=== PATIENT | female | born 1985 | race Caucasian/White ===

== ENCOUNTER 2016-07-31 01:28 | Emergency (ER) | payer MEDICAID ==
[2016-07-31 02:25] LABS: BASOPHIL % 1.7 % (0-2); CALCIUM 8.5 mg/dL (8.5-10.1); CARBON DIOXIDE 31.5 mmol/L (21-32); CHLORIDE SERUM 104 mmol/L (98-107); CREATININE SERUM 0.8 mg/dL (0.6-1.0); GFR1 > 60 mL/min; GLUCOSE SERUM 164 mg/dL (74-106); POTASSIUM SERUM 3.4 mmol/L (3.5-5.1); RED CELL DISTRIBUTION WIDTH 12.6 % (11.5-14.5); SODIUM SERUM 142 mmol/L (136-145)
[2016-07-31 02:26] LABS: PLATELET COUNT 412 x10^3mcL (130-400)
[2016-07-31 02:31] LABS: ALBUMIN 3.5 g/dL (3.4-5.0); ALKALINE PHOSPHATASE 90 U/L (46-116); ALT/SGPT 72 U/L (14-59); AST/SGOT 37 U/L (15-37); BILIRUBIN TOTAL 0.51 mg/dL (0.20-1.00); TOTAL PROTEIN, SERUM 7.3 g/dL (6.4-8.2)
[2016-07-31 03:49] VITALS: BP 110/82
== END 2016-07-31 03:49 | disposition home or self-care (01) ==
LOC: ED 01:28
PROVIDERS: Emergency Medicine
DX: R07.89 Other chest pain (principal); R05 Cough; M54.6 Pain in thoracic spine; Z88.0 Allergy status to penicillin
CPT/HCPCS: 85378; Q0092

== ENCOUNTER 2016-08-12 22:46 | Emergency (ER) | payer MEDICAID ==
[2016-08-13 01:35] LABS: CALCIUM 8.6 mg/dL (8.5-10.1); CARBON DIOXIDE 27.8 mmol/L (21-32); CHLORIDE SERUM 101 mmol/L (98-107); CREATININE SERUM 0.8 mg/dL (0.6-1.0); GFR1 > 60 mL/min; GLUCOSE SERUM 212 mg/dL (74-106); POTASSIUM SERUM 3.7 mmol/L (3.5-5.1); SODIUM SERUM 136 mmol/L (136-145)
[2016-08-13 01:36] LABS: ALBUMIN 3.5 g/dL (3.4-5.0); ALKALINE PHOSPHATASE 81 U/L (46-116); ALT/SGPT 88 U/L (14-59); AST/SGOT 48 U/L (15-37); BILIRUBIN TOTAL 1.25 mg/dL (0.20-1.00); LIPASE 103 IU/L (73-393); TOTAL PROTEIN, SERUM 7.8 g/dL (6.4-8.2)
[2016-08-13 04:06] VITALS: BP 127/77
== END 2016-08-13 04:06 | disposition home or self-care (01) ==
LOC: ED 22:46
PROVIDERS: Emergency Medicine
DX: R19.7 Diarrhea, unspecified (principal); R10.13 Epigastric pain; R11.2 Nausea with vomiting, unspecified
CPT/HCPCS: Q0162

== ENCOUNTER 2016-12-07 01:06 | Emergency (ER) | payer MEDICAID ==
[2016-12-07 01:14] VITALS: BP 146/108
== END 2016-12-07 02:02 | disposition home or self-care (01) ==
LOC: ED 01:06
DX: H60.92 Unspecified otitis externa, left ear (principal)

== ENCOUNTER 2016-12-09 00:25 | Emergency (ER) | payer MEDICAID ==
[2016-12-09 01:40] VITALS: BP 149/98
== END 2016-12-09 01:00 | disposition home or self-care (01) ==
LOC: ED 00:25
DX: H60.502 Unspecified acute noninfective otitis externa, left ear (principal); Z88.0 Allergy status to penicillin; Z91.013 Allergy to seafood

== ENCOUNTER 2017-03-10 19:59 | Emergency (ER) | payer MEDICAID ==
[~2017-03-10] VITALS: Ht 165.1 cm; Wt 131.5 kg
[2017-03-10 21:13] LABS: BASOPHIL % 0.2 % (0-2); PLATELET COUNT 327 x10^3mcL (130-400); RED CELL DISTRIBUTION WIDTH 13.3 % (11.5-14.5)
[2017-03-10 21:22] LABS: CALCIUM 8.7 mg/dL (8.5-10.1); CHLORIDE SERUM 101 mmol/L (98-107); CREATININE SERUM 0.7 mg/dL (0.6-1.0); GFR1 > 60 mL/min; GLUCOSE SERUM 219 mg/dL (74-106); POTASSIUM SERUM 3.7 mmol/L (3.5-5.1); SODIUM SERUM 138 mmol/L (136-145)
[2017-03-10 21:27] LABS: ALBUMIN 3.4 g/dL (3.4-5.0); ALKALINE PHOSPHATASE 104 U/L (46-116); ALT/SGPT 107 U/L (14-59); AMYLASE 52 U/L (25-115); AST/SGOT 49 U/L (15-37); LIPASE 134 IU/L (73-393); TOTAL PROTEIN, SERUM 8.2 g/dL (6.4-8.2)
[2017-03-10 23:04] VITALS: BP 152/75
== END 2017-03-10 23:04 | disposition home or self-care (01) ==
LOC: ED 19:59
PROVIDERS: Emergency Medicine
DX: K21.9 Gastro-esophageal reflux disease without esophagitis (principal); E66.01 Morbid (severe) obesity due to excess calories; Z88.0 Allergy status to penicillin; Z91.013 Allergy to seafood
CPT/HCPCS: 83880; C9113; J2405; J2765; J3490; J7030

== ENCOUNTER 2017-07-05 12:42 | Emergency (ER) | payer MEDICAID ==
[~2017-07-05] VITALS: Ht 165.1 cm; Wt 126.5 kg
[2017-07-05 12:47] VITALS: Ht 165.1 cm; Wt 126.5 kg
[2017-07-05 16:44] VITALS: BP 109/61
== END 2017-07-05 16:44 | disposition home or self-care (01) ==
LOC: ED 12:42
DX: L02.31 Cutaneous abscess of buttock (principal); Z88.0 Allergy status to penicillin
CPT/HCPCS: J2001; J3010; J3490

== ENCOUNTER 2017-09-27 00:32 | Emergency (ER) | payer MEDICAID ==
[~2017-09-27] VITALS: Ht 165.1 cm; Wt 124.7 kg
[2017-09-27 00:38] VITALS: Ht 165.1 cm; Wt 124.7 kg
[2017-09-27 01:45] VITALS: BP 144/91
== END 2017-09-27 01:35 | disposition home or self-care (01) ==
LOC: ED 00:32
DX: S83.91XA Sprain of unspecified site of right knee, initial encounter (principal); S00.81XA Abrasion of other part of head, initial encounter; Z88.0 Allergy status to penicillin; Z91.013 Allergy to seafood; W18.31XA Fall on same level due to stepping on an object, initial encounter; Y93.89 Activity, other specified; Y92.89 Other specified places as the place of occurrence of the external cause; Y99.8 Other external cause status
CPT/HCPCS: J1885

== ENCOUNTER 2019-01-21 00:48 | Inpatient (IN) | payer MEDICAID ==
[~2019-01-21] VITALS: Ht 162.6 cm; Wt 118.0 kg
[2019-01-21 00:53] VITALS: Ht 162.6 cm; Wt 118.0 kg
--- NOTE | 2019-01-21 01:24 | NUR ---
PT COMES TO ED WITH C/C RUQ ABD PAIN THAT RADIATES TO RIGHT FLANK. DENIES FEVER LIKE SYMTPOMS. REPORTS N/V X5 DAYS. PT IS AAOX4. RESP E/U. 01/26 PAIN TO RUQ. DENIES ANY PMH. CONNECTED TO MONITOR. AWAITING MSE.
--- NOTE | 2019-01-21 02:07 | NUR ---
LAB AT BEDSIDE.
[2019-01-21 02:28] LABS: PLATELET COUNT 323 x10^3mcL (130-400); RED CELL DISTRIBUTION WIDTH 12.5 % (11.5-14.5)
[2019-01-21 02:29] LABS: BASOPHIL % 0 % (0-2)
[2019-01-21 02:55] LABS: CALCIUM 8.9 mg/dL (8.5-10.1); CARBON DIOXIDE 24.3 mmol/L (21-32); CHLORIDE SERUM 95 mmol/L (98-107); CREATININE SERUM 0.9 mg/dL (0.6-1.0); GFR1 > 60 mL/min; GLUCOSE SERUM 343 mg/dL (74-106); POTASSIUM SERUM 3.7 mmol/L (3.5-5.1); SODIUM SERUM 131 mmol/L (136-145)
[2019-01-21 02:59] LABS: ALBUMIN 3.6 g/dL (3.4-5.0); ALKALINE PHOSPHATASE 112 U/L (46-116); ALT/SGPT 93 U/L (14-59); AST/SGOT 36 U/L (15-37); BILIRUBIN TOTAL 1.16 mg/dL (0.20-1.00); LIPASE 118 IU/L (73-393); TOTAL PROTEIN, SERUM 8.1 g/dL (6.4-8.2)
--- NOTE | 2019-01-21 03:41 | NUR ---
LAB AT BEDSIDE.
--- NOTE | 2019-01-21 04:08 | NUR ---
PT TAKEN TO CT AT THIS TIME.
--- NOTE | 2019-01-21 05:59 | NUR ---
REPORT CALLED AND GIVEN TO SHABNAM CASTELAN.
--- NOTE | 2019-01-21 06:28 | NUR ---
PT RECEIVED FROM ED VIA GURNEY ACCOMPANIED BY RN AND EMT. PT A/O X4, ABLE TO MAKE NEEDS KNOWN. TELE #27, SINUS TACH, PT DENIES ANY CP/PRESSURE. BREATHING IS EVEN AND UNLABORED ON RA, DENIES SOB, NO RESP DISTRESS NOTED. ABD SOFT AND ROUND, DENIES N/V. PT CAME IN FOR RUQ PAIN. PT NPO AT THIS TIME, PT VERBALIZES UNDERSTANDING, NPO SIGN POSTED. VOIDS FREELY, BRP. AMBULATORY WITH STEADY GAIT. SKIN IS WARM AND DRY, INTACT. PT DENIES ANY PAIN AT THIS TIME. IV TO RFA, PATENT AND INTACT. NO ACUTE DISTRESS NOTED. ORIENTED PT TO ROOM AND CALL LIGHT. BED IN LOWEST SETTING, SIDE RAILS UP X2, CALL LIGHT WITHIN REACH. WILL CONT TO MONITOR.
--- NOTE | 2019-01-21 07:15 | NUR ---
PT IN NO ACUTE DISTRESS. CONTINUITY OF CARE ENDORSED TO AM NURSE. ALL QUESTIONS AND CONCERNS ADDRESSED.
[2019-01-21 07:16] LABS: FREE T4 1.15 ng/dL (0.76-1.46); FREE THYROXINE INDEX 3.2 ug/dL (1.4-4.5); T4(THYROXINE) 10.2 ug/dL (4.7-13.3)
--- NOTE | 2019-01-21 07:44 | NUR ---
A+OX4, NO RESPRIATORY DISTRESS NOTED, DENIES PAIN AT THIS TIME, TELE 27, PULSES MODERATE AND EQUAL PERLA, NO EDEMA NOTED, LUNG SOUNDS CTA, TOLERATING RA, BOWEL SOUNDS ACTIVE, VOIDING FREELY, AMBULATORY, SKIN INTACT, IV IN RFA WITH NS @ 100 ML/HR, SITE WNL.
[2019-01-21 08:12] VITALS: BP 102/72
[2019-01-21 08:26] VITALS: BP 109/68
[2019-01-21 08:39] LABS: CHOLESTEROL/HDL RATIO 5.1; MAGNESIUM 1.2 mg/dL (1.8-2.4); PHOSPHOROUS 3.3 mg/dL (2.5-4.9)
[2019-01-21 08:49] LABS: T3 TOTAL 1.44 ng/mL
--- NOTE | 2019-01-21 09:27 | NUR ---
PT COMPLAINING OF 8/10 ABD PAIN, NORCO PO GIVEN, NO RESPIRATORY DISTRESS NOTED, CALL LIGHT WITHIN REACH.
[2019-01-21 09:43] LABS: microscopic required? NO
--- NOTE | 2019-01-21 10:07 | NUR ---
REPORT GIVEN TO NAM TRANSVERSE ABDOMINAL MUSCLE SURGEON. CHG WIPES DONE. PT INFORMED THAT SURGEON WILL EXPLAIN PROCEDURE IN OR. PT OFF UNIT VIA BED FOR SURGERY. TELE REMOVED AND PLACED AT BEDSIDE.
[2019-01-21 10:11] LABS: AMPHETAMINE QUAL UR NONE DETECTED (See below)
[2019-01-21 10:32] LABS: UA SPECIFIC GRAVITY >=1.030 (1.005-1.035); urine erythrocyte NEGATIVE (NEGATIVE)
--- NOTE | 2019-01-21 13:40 | NUR ---
PT BACK FROM [facility] WITH INCISIONS WITH SUTURES, ERZA, AND BAND AIDS, MAAME DRAIN, SCANT DRAINAGE. PT COMPLAINING OF 9/10 BAD PAIN AFTER AMBULATING TO BATHROOM AND BACK TO BED. NORCO PO GIVEN. VS STABLE. AT BEDSIDE, CALL LIGHT WITHIN REACH.
--- NOTE | 2019-01-21 16:15 | NUR ---
PT RESTING IN BED, NO RESPIRATORY DISTRESS NOTED, COMPLAINING OF 8/10 ABD PAIN, NORCO PO GIVEN, AT BEDSIDE, CALL LIGHT WITHIN REACH.
[2019-01-21 17:34] VITALS: BP 97/54
--- NOTE | 2019-01-21 18:43 | NUR ---
PT RESTING IN BED, NO RESPIRATORY DISTRESS NOTED, CALL LIGHT WITHIN REACH.
--- NOTE | 2019-01-21 19:20 | NUR ---
RECIEVED PT IN NO ACUTE DISTRESS. AOX4. TELE #27, ST. BREATHING E/U. I/S GIVEN, INSTRUCTED PT ON PURPOSE AND USE, PT ABLE TO RETURN DEMONSTRATION. BOWEL SOUNDS HYPOACTIVE. ABD SOFT/ROUND. ABD LAP SITES X 4 WITH SUTURES, EZRA, BANDAIDS, CDI. MAAME DRAIN PRESENT. S/P LAP HOLLIS 01/21. STATES PASSING GAS. NO POST OP BM YET. AMBULATES TO BATHROOM. C/O SURGICAL PAIN 11/26, WILL MEDICATE PER EMAR. IV TO RFA, PATENT. BED IN LOWEST POSITION, 2 SIDE RAILS UP, CALL LIGHT IN REACH. INSTRUCTED TO CALL FOR ASSISTANCE.
--- NOTE | 2019-01-21 19:37 | NUR ---
MAAME DRAIN EMPTIED: 10 ML BROWN DRAINAGE.
--- NOTE | 2019-01-21 19:37 | NUR ---
ENDORSED CARE TO FRANCK HAQUE.
[2019-01-21 20:51] VITALS: BP 104/70
--- NOTE | 2019-01-22 00:30 | NUR ---
RESTING WITH EYES CLOSED. BREATHING E/U. NO ACUTE DISTRESS NOTED. WILL CONTINUE TO MONITOR.
[2019-01-22 05:21] VITALS: BP 114/66
--- NOTE | 2019-01-22 05:56 | NUR ---
PT ABLE TO AMBULATE TO RESTROOM X 4 OVERNIGHT. CONTINUES TO PASS GAS, NO BM. C/O SURGICAL PAIN 11/26, MEDICATED WITH NORCO PO WITH GOOD EFFECT. INCISIONS REMAIN CDI. WILL ENDORSE TO ONCOMING RN.
[2019-01-22 06:24] LABS: BASOPHIL % 0.2 % (0-2); PLATELET COUNT 290 x10^3mcL (130-400); RED CELL DISTRIBUTION WIDTH 13.4 % (11.5-14.5)
[2019-01-22 06:54] LABS: CALCIUM 7.8 mg/dL (8.5-10.1); CARBON DIOXIDE 26.6 mmol/L (21-32); CHLORIDE SERUM 103 mmol/L (98-107); CREATININE SERUM 0.7 mg/dL (0.6-1.0); GFR1 > 60 mL/min; GLUCOSE SERUM 211 mg/dL (74-106); MAGNESIUM 1.6 mg/dL (1.8-2.4); PHOSPHOROUS 3.4 mg/dL (2.5-4.9); POTASSIUM SERUM 3.8 mmol/L (3.5-5.1); SODIUM SERUM 139 mmol/L (136-145)
--- NOTE | 2019-01-22 07:45 | NUR ---
A+OX4, NO RESPIRATORY DISTRESS NOTED, TELE 27, PULSES MODERATE AND EQUAL PERLA, NO EDEMA NOTED, LUNG SOUNDS CTA, TOLERATING RA, BOWEL SOUNDS ACTIVE, VOIDING FREELY, GENERALIZED WEAKNESS, AMBULATORY, X4 INCISIONS WITH SUTURES, EZRA, AND BAND AIDS WITH MAAME DRAIN CDI, IV IN RFA WITH NS @ 100 ML/HR, SITE WNL.
[2019-01-22 08:39] VITALS: BP 105/72
--- NOTE | 2019-01-22 09:37 | NUR ---
PT RESTING IN BED, COMPLAINING OF 10/10 ABD PAIN AT INCISION SITES, NORCO PO GIVEN. PT REQUESTING "STRONGER PAIN MEDS". PT ALSO COMPLAINING OF SORE THROAT. WILL NOTIFY RESIDENT DUSRING ROUNDS.
--- NOTE | 2019-01-22 10:40 | NUR ---
PT COMPLAINING OF SORE THROAT, CEPACOL GIVEN.
--- NOTE | 2019-01-22 12:01 | NUR ---
PT RESTING IN BED, NO RESPIRATORY DISTRESS NOTED, COMPLAINING OF 10/10 ABD PAIN, NORCO PO GIVEN, CALL LIGHT WITHIN REACH.
[2019-01-22 12:45] VITALS: BP 125/66
--- NOTE | 2019-01-22 13:09 | NUR ---
PT RESTING IN BED, NO RESPIRATORY DISTRESS NOTED, CALL LIGHT WITHIN REACH.
--- NOTE | 2019-01-22 13:52 | NUR ---
PT AMBULATING BACK AND FORTH IN ROOM INDEPENDENTLY, STATES ABD PAIN TOLERABLE AT THIS TIME, GAIT SLOW AND STEADY.
--- NOTE | 2019-01-22 16:12 | NUR ---
PT AMBULATEDTO BATHROOM AND BACK TO BED INDEPENDENTLY, NO RESPRIATORY DISTRESS NOTED, COMPLAINING OF 8/10 ABD PAIN, NORCO PO GIVEN, CALL LIGHT WITHIN REACH, AT BEDSIDE.
[2019-01-22 17:06] VITALS: BP 103/58
--- NOTE | 2019-01-22 20:00 | NUR ---
RECEIVED RPT FROM DAY SHIFT NURSE, CARLOS EDUARDO HAQUE. PT IS A/O X4. SPEECH IS CLEAR. IS AT BEDSIDE. ON TELE #27 READING NSR. VS ARE FOLLOWED: 115/76, HR 76, RR 18, SAO2 98%, TEMP 98.1. PULSES ARE PALPABLE IN ALL 4 EXTREMITIES. NO EDEMA NOTED. SWELLING ON RFA FROM IV. WILL D/C AND INSERT NEW ONE. BREATHING IS EVEN AND UNLABORED ON RA. LUNG SOUNDS CTA PERLA. DENIES SOB. ABD IS SOFT AND NONDISTENDED. BS ACTIVE IN ALL 4Q. BRP. AMBULATORY. STEADY GAIT. ABD HAS 4 SURGICAL INCISIONS WITH SUTURES, EZRA, AND BANDAIDS. MAAME DRAIN CDI. PT DOES C/O 10/26 PAIN. WILL MEDICATE PER JUN. BED IN LOWEST POSITION. CALL LIGHT WITHIN REACH. WILL CONTINUE TO MONITOR.
--- NOTE | 2019-01-22 20:25 | NUR ---
ROUTINE MEDS WERE GIVEN AND TOELRATED WELL. PT ALSO C/O OF NORRIS. WAS MEDICATED WITH PRN TYLENOL. WILL REASSESS EFFECTIVENESS.
[2019-01-22 20:35] VITALS: BP 115/76
--- NOTE | 2019-01-22 22:00 | NUR ---
NEW IV TO RH WAS INSERTED. DRY, INTACT, AND PATENT. APPLIED COFLEX TO SECURE PER PTS REQUEST. ENCOURAGED PT TO AMBULATE AND USE IS. CALL LIGHT WITHIN REACH. WILL CONTINUE TO MONITOR.
--- NOTE | 2019-01-23 01:36 | NUR ---
PT IS LYING IN BED WATCHING TV. C/O 10/26 AT SURGICAL SITE. MEDICATED PER JUN. REASSESSED EFFECTIVENESS AND PT SAID PAIN DECREASED TO 2/10. ENCOURAGED DEEP BREATHING. PROVIDED ICE PACKS. REPOSITIONED PATIENT. WILL CONTINUE TO MONITOR.
--- NOTE | 2019-01-23 03:22 | NUR ---
ASSISTED PT TO RESTROOM. C/O OF PAIN 06/26, BUT STATES ITS BAREABLE. BREATHING IS EVEN AND UNLABORED. NO SIGNS OF RESP DISTRESS. ENCOURAGED PT TO WALK OR USE IS. BED IN LOWEST POSITION. CALL LIGHT WITHIN REACH. WILL CONTINUE TO MONITOR.
--- NOTE | 2019-01-23 05:26 | NUR ---
PT SLEPT IN INTERVALS THROUGHOUT THE NIGHT. COMPLIED WITH NURSING CARE THROUGHOUT SHIFT WITH NO ACUTE EVENTS OVERNIGHT. COMFORT AND SAFETY MEASURES MAINTAINED. ALL NEEDS ASSESSED AND ATTENDED TO. WILL CONTINUE TO MONITOR AND ENDORSE CARE TO DAY SHIFT NURSE.
[2019-01-23 05:48] VITALS: BP 123/78
--- NOTE | 2019-01-23 07:49 | NUR ---
ENDORSED CARE TO DAY SHIFT NURSE, NAVI HAQUE.
--- NOTE | 2019-01-23 08:00 | NUR ---
RECEIVED PT IN BED. ASSESSED AND DOCUMENTED. PT SAID ABDOMINAL INCISIONS HAS MILD SORENESS BUT SHE CAN TOLERATE. ON AND OFF NAUSEA. SHE SAID SHE WILL IF SHE HAS NAUSEA. SAFTEY PRECAUTIONS ARE IN PLACE. WILL MONITOR.
--- NOTE | 2019-01-23 08:20 | NUR ---
PT IS FEELING NAUSEA AND VOMITED X1. ZOFRAN IV GIVEN ORDERED. WILL MONITOR.
--- NOTE | 2019-01-23 09:00 | NUR ---
PT SAID SHE DOESNOT HAVE NAUSEA ANYMORE. PT AMBULATED WELL IN THE HALLWAY WITH ASSIST OF STUDENT NURSE.
[2019-01-23 09:09] VITALS: BP 145/94
[2019-01-23 10:04] LABS: BILIRUBIN DIRECT 0.86 mg/dL (0.0-0.2); BILIRUBIN TOTAL 1.43 mg/dL (0.20-1.00); TOTAL PROTEIN, SERUM 7.6 g/dL (6.4-8.2)
[2019-01-23 13:11] VITALS: BP 145/92
--- NOTE | 2019-01-23 13:30 | NUR ---
PT C/O ABD INCISIONAL PAIN,07/27. ADMINISTERED NORCO PO ORDERED [id number] AND REASSESSED AT 1330 PT SAID SHE DOESNOT HAVE ANY PAIN ANYMORE. NO NAUSEA THIS TIME.
[2019-01-23 17:59] VITALS: BP 116/68
[2019-01-23 18:00] VITALS: BP 171/70
--- NOTE | 2019-01-23 18:41 | NUR ---
PT C/O ABD INCISIONAL PAIN,07/27. ADMINISTERED NORCO PO ORDERED AT 174 AND REASSESSED AT 184 PT SAID SHE DOESNOT HAVE ANY PAIN ANYMORE. NO NAUSEA THIS TIME.
--- NOTE | 2019-01-23 19:00 | NUR ---
RECEIVED PT IN BED RESTING WITH FAMILY AT BEDSIDE. AAOX4. LUNG SOUND CTA. BREATHING EVEN AND UNLABORED. 4 INCISIONS WITH SUTURES,STAPLE AND BANDAID TO ABDOMEN,CDI. MAAME DRAIN TO RLQ. IV SITE PATENT AND INTACT. BED IN LOWEST POSITION,CALL LIGHT WITHIN REACH. WILL CONTINUE TO MONITOR.
--- NOTE | 2019-01-23 19:06 | NUR ---
PT RESTING IN BED COMFORTABLY, NO NAUSEA THIS TIME. DENIES ANY PAIN. STABLE. FAMILY AT BEDSIDE, GAVE REPORT TO REMELT WORKER NURSE.
[2019-01-23 21:16] VITALS: BP 106/76
--- NOTE | 2019-01-24 02:20 | NUR ---
PT C/O ABDOMINAL PAIN 10/26. MEDICATED NORCO 7.5/325MG PO ORDERED. WILL CONTINUE TO MONITOR.
--- NOTE | 2019-01-24 05:02 | NUR ---
PT AWAKE. DENIES ANY PAIN AT THIS TIME.IVF INFUSING WELL. NO DISTRESS NOTED. MAAME DRAIN 20CC. PT AMBULATED TO THE BATHROOM.NO BM AT THIS TIME ONLY GAS. BED IN LOWEST POSITION,CALL LIGHT WITHIN REACH. WILL CONTINUE TO MONITOR.
[2019-01-24 06:02] VITALS: BP 111/74
[2019-01-24 06:43] LABS: BASOPHIL % 0.5 % (0-2); PLATELET COUNT 313 x10^3mcL (130-400); RED CELL DISTRIBUTION WIDTH 13.3 % (11.5-14.5)
[2019-01-24 06:48] LABS: CALCIUM 8.2 mg/dL (8.5-10.1); CARBON DIOXIDE 28.3 mmol/L (21-32); CHLORIDE SERUM 102 mmol/L (98-107); CREATININE SERUM 0.7 mg/dL (0.6-1.0); GFR1 > 60 mL/min; GLUCOSE SERUM 226 mg/dL (74-106); POTASSIUM SERUM 3.6 mmol/L (3.5-5.1); SODIUM SERUM 138 mmol/L (136-145)
--- NOTE | 2019-01-24 07:30 | NUR ---
CARE ENDORSED TO DAY NURSE NAVI.
--- NOTE | 2019-01-24 07:40 | NUR ---
RECEIVED PT IN BED. ASSESSED AND DOCUMENTED. DENIES PAIN THIS TIME. NO NAUSEA THIS TIME. STABLE. SAFTEY PRECAUTIONS ARE IN PLACE. WILL MONITOR.
--- NOTE | 2019-01-24 07:47 | NUR ---
PT C/O NAUSEA AND VOMITED 100ML GREENISH YELLOW DRAINAGE. ZOFRAN IV GIVEN ORDERED AND WILL REASSESS. STABLE.
--- NOTE | 2019-01-24 08:20 | NUR ---
PT RESTING IN BED COMFORTABLY. SHE SAID SHE DOESNOT FEEL NAUSEA THIS TIME. STABLE. DENIES ANY PAIN.
[2019-01-24 08:54] VITALS: BP 118/78
--- NOTE | 2019-01-24 10:56 | NUR ---
PT GOT UP TO GO TO THE BATHROOM, HR 130 FOR FEW SEC AND BACK TO NSR WITH HR 77. STATED MILD PAIN IN THE ABDOMINAL INCISION,/ BUT SHE SAID SHE CAN TOLERATE, NO NEED OF PAIN MED. PT IS GOING FOR ERCP PROCEDURE SOON.
--- NOTE | 2019-01-24 11:10 | NUR ---
OR STAFF CAME AND TOOK PT TO OR FOR ERCP VIA [facility]. CONSENT WAS SIGNED BY PT YESTERDAY AND CHECK LIST DONE. V/S STABLE. REPORT WAS GIVEN TO OR NURSE IN AM. JUNIOR WIPE WAS DONE.
--- NOTE | 2019-01-24 12:00 | NUR ---
1. Recommend progressing to (CCHO) clear/ full liquid diet once medically appropriate tolerated.
--- NOTE | 2019-01-24 12:00 | NUR ---
Initial Nutrition Assessment: 206T/A PARAG RIOS IA HR Dx: Tachycardia, new onset DM, cholecystitis PMHx: none PSHx: Labs: BG 226H, BUN 5.0L, ALB 3.0L, AST 223H, ALT 191H, TG 152H, MG 1.6L Meds: Colace, D50%, flagyl, Humulin, Levaquin, norco, zofran Diet: NPO for ERCP PO intake since admission: (01/23) full liquid lunch 20%, breakfast 0% Ht: 162.56 cm (64") Wt: 117.9 kg (259#) BMI: 44.6 kg/m2 Bed scale: 118# IBW: 120# (55 kg) %IBW: 215 UBW: 118-119# Age: 33/F Food Allergies: Seafood Skin: MAAME drain to RLQ, 4 incisions with sutures, regan Braulio: 21 Edema: none GI: s/p lap marita Last BM: 01/20 Pt is a 33-year-old female with no PMH presents to the emergency room complaining of abdominal pain. RD Note (01/24): Patient was alert and oriented and said that she has poor appetite and feels nauseous. Patient is scheduled for ERCP today. Patient is a new onset DM. DM diet education was provided to the patient. Problem with: N/V/D/C: nausea Problems with: Chewing: Swallowing: none Current appetite: poor Recent wt change: none %wt change: n/a Vitamin/Supplement use: none Special diet at home: Regular Physical activity: none Nutrition education given: DM diet education was provided using [facility] handout on 'Type 2 Diabetes Nutrition Therapy'. Concepts like high fiber foods and portion control were discussed. Patient verbalized understanding and did not have any questions at this time. Food-drug interactions: Colace: high fiber w/ 5660-0340 ml fluid/day Education given: n/a Estimated Nutritional Needs Based on adjusted body weight (71 kg) Energy: 8957-1422 kcal/day (25-30 kcal/kg for) Protein: 71-85 g/day (1.0-1.2 g/kg for) Fluid: 9740-6144 mL/day (1 mL/kcal) Nutrition Diagnosis: 1. Inadequate oral intake related to nausea, vomiting as evidenced by documented PO <75% Intervention 1. Recommend progressing to (CCHO) clear/ full liquid diet once medically appropriate tolerated. Monitor/Evaluate Goal: PO intake at least 75% of estimated needs Monitor: PO intake, Labs, GI function F/U in 3-5 days as moderate risk 01/27-
--- NOTE | 2019-01-24 14:45 | NUR ---
RECEIVED PT FROM RECOVERY ROOM AFTER ERCP. PT IS SLEEPY AND SLIGHTLY DROWSY. AROUSABLE AND VERBALLY RESPONDING. ORIENTED X4. DENIES ANY PAIN. NO NAUSEA THIS TIME. V/S CHECKED, STABLE AND WILL RECORDED. IVF NS RESTARTED 100ML/HR. STABLE. SCD'S TO BLE. ATTACHED TO TELE #27 READING SR WITH HR 72. WILL CONTINUE MONITOR.
[2019-01-24 14:49] VITALS: BP 125/90
[2019-01-24 16:38] VITALS: BP 112/76
--- NOTE | 2019-01-24 18:57 | NUR ---
PT C/O ABD INCISION PAIN,08/26. NORCO PO GIVEN ORDERED NOW. STABLE. NO NAUSEA THIS TIME. PT HAD CL DIET FOR DINNER. GAVE REPORT TO GLASS PULVERIZER EQUIPMENT OPERATOR NURSE.
--- NOTE | 2019-01-24 19:00 | NUR ---
RECEIVED PT IN BED RESTING WITH FAMILY BEDSIDE. NO DISTRESS NOTED. C/O SURGICAL PAIN 11/26.NURSE NAVI JUST MEDICATED NORCO 7.5/325. WILL REASSESS AGAIN. 4 INCISIONS TO ABDOMEN WITH SUTURES,EZRA AND BANDAID. MAAME DRAIN TO RLQ. IV SITE PATENT AND INTACT. BED IN LOWEST POSITION,CALL LIGHT WITHIN REACH. WILL CONTINUE TO MONITOR.
[2019-01-24 20:00] VITALS: BP 121/83
[2019-01-24 22:00] VITALS: BP 121/83
--- NOTE | 2019-01-25 | NUR ---
PT OOB TO BATHROOM. NO SOB NOTED. NO INCIDENT HAPPENED. WILL CONTINUE TO MONITOR.
--- NOTE | 2019-01-25 05:09 | NUR ---
PT REMAINED ASLEEP. NO DISTRESS NOTED. DENIES PAIN AT THIS TIME.BED IN LOWEST POSITION,CALL LIGHT WITHIN REACH. WILL CONTINUE TO MONITOR.
[2019-01-25 05:46] VITALS: BP 131/74
[2019-01-25 06:30] LABS: CALCIUM 8.2 mg/dL (8.5-10.1); CHLORIDE SERUM 100 mmol/L (98-107); CREATININE SERUM 0.6 mg/dL (0.6-1.0); GFR1 > 60 mL/min; GLUCOSE SERUM 208 mg/dL (74-106); MAGNESIUM 1.7 mg/dL (1.8-2.4); POTASSIUM SERUM 3.4 mmol/L (3.5-5.1); SODIUM SERUM 137 mmol/L (136-145)
--- NOTE | 2019-01-25 06:50 | NUR ---
MAAME DRAIN 10CC WITH LIGHT BROWN FLUID.
--- NOTE | 2019-01-25 07:27 | NUR ---
CARE ENDORSED TO DAY NURSE FLOR.
[2019-01-25 07:59] LABS: BASOPHIL % 0.3 % (0-2); PLATELET COUNT 312 x10^3mcL (130-400); RED CELL DISTRIBUTION WIDTH 13.6 % (11.5-14.5)
--- NOTE | 2019-01-25 08:06 | NUR ---
RECEIVED HAND OFF REPORT FROM NIGHT NURSE. PATIENT RESTING IN BED, EYES OPEN TO SOUND, A/OX4 SPEECH CLEAR, NO COMPLAINTS OF NAUSEA OR PAIN. X4 BANDAIDS TO ABD INCISIONS AND MAAME DRAIN PRESENT ON ABD. ENCOURAGED PATIENTT O EAT SLOWLY WITH BREAKFAST, CLEAR LIQUIDS. AND TO AMBULATE TODAY. CALL LIGHT WITHIN REACH. RAMO TORO ROUNDED ON PATIETN AND NEW ORDERS ENTERED FOR POTASSIUM 3.4 AND MAGNESIUM 1.7, WILL FOLLOW THROUGH WITH ORDERS
[2019-01-25 08:15] VITALS: BP 125/83
--- NOTE | 2019-01-25 08:30 | NUR ---
PATIENT COMPLAINING OF PAIN, ADMINISTERED NORCO PO. WHILE TAKING OTHER PO MEDICATION PATIENT FELT IF SHE WAS GOING TO VOMIT. SAT PATIENT UP AND ADMINISTERED ZOFRAN,. STARTED 2L O2 VIA NC FOR COMFORT. COAHCED DEEP, EVEN BREATHING. NO EPISODES OF VOMITING
[2019-01-25 12:05] VITALS: BP 121/82
[2019-01-25 12:06] VITALS: BP 107/57
--- NOTE | 2019-01-25 13:14 | NUR ---
BLOOD GLUCOSE RESULT WAS 191, ADMINSITERED 3UNITS REGULAR INSULIN PER SLIDING SCALE, RAMO TORO ADVANCED PATIENT DIET TO FULL LIQUIDS, AND IF TOLERATING WILL ADVANCE TO REGULAR DIET ([facility] FOR DINNER. ENCOURAGED PATIENT TO AMBULATE IN HIGH AFTER EATING, WILL PREMEDICATE. PATIENT NOW M/S PATIENT. TELE BOX 27 REMOVED FROM PATIENT AND TAKEN BACK TO JANICE SORIA
--- NOTE | 2019-01-25 15:05 | NUR ---
VISUALIZED PATIENT WALKING IN HALLWAY. GAIT STEAY BUT SLOW. NO PAIN REPORTED. ENCOURAGED PATIENT TO CONTINUE TO WALK TO PREPARE FOR DISCHARGE.
--- NOTE | 2019-01-25 16:10 | NUR ---
PATIENT NOW IN BE BED DUE TO A BED MALFUNCTIONING. RESTING IN BED, NO COMPLAINTS AT THIS TIME.
[2019-01-25 16:20] VITALS: BP 122/81
--- NOTE | 2019-01-25 16:56 | NUR ---
PATIENT BLOOD SUGAR RESULT WAS 186, ADMINISTERED 3 UNITS REGULAR INSULIN PER SLIDING SCALE, PATIENT STATES SHE THINKS SHE TOLLERATED FULL LIQUIDS WELL AND WOULD LIKE TO ADVANCE TO REGULAR DIET. WILL INFORM RAMO FOR ORDER
[2019-01-25 19:15] VITALS: BP 125/71
--- NOTE | 2019-01-25 19:21 | NUR ---
GAVE REPORT TO SAKINA HAQUE. MAAME DRAIN WAS EMPTIED 20ML OUT
--- NOTE | 2019-01-25 19:25 | NUR ---
RECEIVED PT AWAKE ALERT AND VERBALLY RESPONSIVE.S/P ERCP 01/24 AND S/P LAP HOLLIS 01/21/19.ABDOMINAL INCISION WITH EZRA X3 AND MAAME DRAIN SITE DRAINIGN TO YELLOW COLORED OUTPUT.ABDOMEN SOFT AND ROUND.ACTIVE BOWELSOUNDS.TOLERATED DIET WELL TODAY.DENIES ANY PAIN.JUST MEDICATED WITH NORCO BY AM NURSE WITH GOOD RELIEF.BP 125/71 MMHG,HR 85.ENCOURAGED AMBULATION AND USE OF INCENTIVE SPIROMETER.WILL CONTINUE TO MONITOR.
--- NOTE | 2019-01-26 04:35 | NUR ---
PT SLEPT WELL ALL NIGHT.MEDICATED WITH NORCO 7.5 MG PO X1 FOR INCISION PAIN WITH GOOD RELIEF.NO ASE NOTED FLAGYL IV ATB.AMBULATED IN THE HALLWAY LAST NIGHT WITH AND ENCOURED.ALSO ENCOUREGED USE OF I.S.WILL CONTINUE TO MONITOR.
--- NOTE | 2019-01-26 05:11 | NUR ---
EMPTIED 20 ML YELLOWISH COLORED OUTPUT FROM MAAME DRAIN.WILL CONTINUE TO MONITOR.
[2019-01-26 06:03] VITALS: BP 123/73
[2019-01-26 06:35] LABS: CALCIUM 7.7 mg/dL (8.5-10.1); CARBON DIOXIDE 28.8 mmol/L (21-32); CHLORIDE SERUM 102 mmol/L (98-107); CREATININE SERUM 0.6 mg/dL (0.6-1.0); GFR1 > 60 mL/min; GLUCOSE SERUM 182 mg/dL (74-106); POTASSIUM SERUM 3.5 mmol/L (3.5-5.1); SODIUM SERUM 137 mmol/L (136-145)
[2019-01-26 06:57] LABS: BASOPHIL % 0.2 % (0-2); PLATELET COUNT 309 x10^3mcL (130-400); RED CELL DISTRIBUTION WIDTH 13.5 % (11.5-14.5)
--- NOTE | 2019-01-26 07:32 | NUR ---
RECEIVED HAND OFF REPORT FROM NIGHT NURSE, SAKINA HAQUE. PATIENT SITTING UP IN BED, NO ACUTE DISTRESS. A/O X4 ON ROOM AIR. PATIENT HAD NOT ACUTE CHANGES DURING THE NIGHT, WAS ABLE TO SLEEP WELL, AMBULATED. X2 BOWEL MOVEMENTS YESTERDAY, 1 DIARRHEA AND 1 FORMED. DENIES CONSTIPATION. BOWEL SOUNDS ACTIVE, X3 BANDAIDS TO ABD OVER SURGICAL INSICIONS. MAAME DRAIN WITH 20ML OUTPUT LAST NIGHT. NOT COMPLAINING OF PAIN, CALL LIGHT WITHIN REACH, ENCOURAGED AMBULATION AND ORAL INTAKE. WILL CONTINUE TO MONITOR
[2019-01-26 08:13] VITALS: BP 130/80
--- NOTE | 2019-01-26 09:16 | NUR ---
RAMO SORENSEN ROUNDED ON PATIENT. AFTER TOLELRATING DIET LAST NIGHT AND MANAGEABLE PAIN PLAN IS D/C TODAY. PATIENT WILL BE D/C WITH MAAME DRAIN PER DR LOVING. PATIENT AWARE.
[2019-01-26 10:23] VITALS: BP 130/80
--- NOTE | 2019-01-26 10:39 | NUR ---
PATIENT COMPLAINING OF PAIN TO RUQ ABD 6/10, REQUESTING PAIN MEDICATION. ADMINISTERED NORCO PRN FOR PAIN. REFUSED COLACE DUE TO HAVING BOWEL MOVEMENTS AND NOT NEEDING. UPDATED PATIENT ON DISCHARGE PLAN, AWAITING ORDERS IN CHART. CALL LIGHT WITHIN REACH
[2019-01-26] MEDS ORDERED: LEVAQUIN500 M1 PO (11:37)
[2019-01-26] MEDS ORDERED: METFORMIN500 M1 PO (11:38)
--- NOTE | 2019-01-26 12:12 | NUR ---
PATIENT BLOOD SUGAR RESULT IS 208, EDUCATED PATIENT ON HOW TO CHECK HER OWN SUGAR. PROVIDED EDUCATION THAT SHE WILL NOT NEED TO ADMINISTER INSULIN TO HERSELF AT THIS TIME. EMPTIED MAAME DRAIN AND EDUCATED PATIENT ON HOW TO CHECK DRAINAGE AND MANAGE DRAIN PRESSURE. INSTRUCTED PATIENT TO RECORD DAILY DRAINAGE TO REPORT TO DR LOVING. LUNCH TRAY AT BEDSIDE. ENCOURAGE PATIENT TO EAT AND THEN WILL BE DISCHARGED AFTER WHEN HER RIDE ARRIVES
--- NOTE | 2019-01-26 13:41 | NUR ---
PATIENT STATED THAT HER IS ON HIS WAY TO PICK THE PATIENT UP. PATIENT REPORTS THAT SHE IS FEELING PAIN TO ABD. 6/10 ADMINSTERED NORCO PO AND WILL REASSESS BEFORE DISCHARGE.
[2019-01-26] MEDS ORDERED: TOR10 PO (14:32)
--- NOTE | 2019-01-26 14:51 | NUR ---
PATIENT READY FOR DISCHARGE. REVIEWED HOSPITAL STAY WITH PATIENT AND PROVIDED AFER VISIT SUMMARY. YESICA TEACHING ABOUT DIABETIC MANAGEMENT AND MANAGING THE MAAME DRAIN. POVIDED GAUZE AND TAPE TO PATIENT WELL COLLECTION CONTAINER FOR MAAME DRAIN DRAINAGE. PROVIDED PATIENT WITH COPIES OF PRESCRIPTIONS AND INFORMED HER OF ELECTRONIC TRANSFER TO [facility] [address]. IV REMOVED FROM RIGHT HAND, CATH INTACT. PATIENT ASSISTED OFF FLOOR WITH ALL BELONGINGS ON HER PERSON.
== END 2019-01-26 14:50 | disposition home or self-care (01) | DRG 710 ==
LOC: ED 00:48 → DU 04:57 → MU 01-25 17:07
PROVIDERS: Emergency Medicine; Family Medicine; Internal Medicine; ADMIT Internal Medicine
PROC: 0FT44ZZ Resection of Gallbladder, Percutaneous Endoscopic Approach (ICD-10-PCS; principal; 2019-01-24 11:30)
DX: A41.9 Sepsis, unspecified organism (principal); E87.0 Hyperosmolality and hypernatremia; M62.82 Rhabdomyolysis; K81.0 Acute cholecystitis; E66.01 Morbid (severe) obesity due to excess calories; Z68.41 Body mass index [BMI] 40.0-44.9, adult; E11.9 Type 2 diabetes mellitus without complications; E78.5 Hyperlipidemia, unspecified
CPT/HCPCS: 43262; 82962; 84439; C1769; C1887; C2625; G0378; J0330; J0694; J1170; J1610; J1815; J1956; J2250; J2270; J2405; J2704; J2710; J3010; J3475; J3490; J7030; J7120; Q0092; Q9967

== ENCOUNTER 2019-02-23 19:29 | Inpatient (IN) | payer MEDICAID ==
[~2019-02-23] VITALS: Ht 165.1 cm; Wt 120.5 kg
[~2019-02-23 19:29] MED LIST: LEVAQUIN500 M1 PO; METFORMIN500 M1 PO; TOR10 PO
[2019-02-23 21:02] LABS: BASOPHIL % 0.2 % (0-2); PLATELET COUNT 309 x10^3mcL (130-400); RED CELL DISTRIBUTION WIDTH 12.7 % (11.5-14.5)
[2019-02-23 21:10] LABS: CALCIUM 8.4 mg/dL (8.5-10.1); CARBON DIOXIDE 21.1 mmol/L (21-32); CHLORIDE SERUM 98 mmol/L (98-107); CREATININE SERUM 0.9 mg/dL (0.6-1.0); GFR1 > 60 mL/min; GLUCOSE SERUM 221 mg/dL (74-106); POTASSIUM SERUM 3.3 mmol/L (3.5-5.1); SODIUM SERUM 132 mmol/L (136-145)
[2019-02-23 21:14] LABS: ALBUMIN 3.4 g/dL (3.4-5.0); ALKALINE PHOSPHATASE 82 U/L (46-116); ALT/SGPT 51 U/L (14-59); AST/SGOT 22 U/L (15-37); BILIRUBIN TOTAL 1.5 mg/dL (0.20-1.00); LIPASE 96 IU/L (73-393); TOTAL PROTEIN, SERUM 7.6 g/dL (6.4-8.2)
--- NOTE | 2019-02-23 21:23 | NUR ---
PATIENT SEEN WITH COMPLAINT OF UPPER ABDOMINAL PAIN. SEEN BY MD. SALINE LOCK INSERTED. PATIENT MEDICATED WITH ZOFRAN AND MORPHINE. SALINE BOLUS IS INFUSING.
--- NOTE | 2019-02-23 21:59 | NUR ---
PATIENT REFUSE CATH, WENT TO THE BATHROOM, SMALL AMOUNT OF URINE COLLECTED UCG IS NEGATIVE.
--- NOTE | 2019-02-23 22:46 | NUR ---
PATIENT HAD ABDOMINAL SCAN DONE.
[2019-02-23 23:08] LABS: UA SPECIFIC GRAVITY 1.015 (1.005-1.035); microscopic required? YES; urine erythrocyte NEGATIVE (NEGATIVE)
--- NOTE | 2019-02-24 00:52 | NUR ---
REPORT WAS GIVEN TO FLIP. PATIENT TRANSPORTED TO ROOM 219.
--- NOTE | 2019-02-24 01:00 | NUR ---
RECEIVED PT BY MYRA FROM ED. PT ARRIVED WITH NURSE AND FAMILY MEMBER. PT AAOX4 AND ABLE TO FOLLOW COMMANDS. PT DENIES HEADACHE AND DIZZINESS AT THIS TIME. PT IS ON TELE #35, SR/ST AT THIS TIME. PT DENIES CHEST PAIN OR PRESSURE AT THIS TIME. PT PULSES ARE PALPABLE AND CAP REFILL <3 SEC. PT LUNG SOUNDS ARE CTA ON RA. PT BREATHING IS EVEN AND UNLABORED. PT HAS ACTIVE BOWEL SOUNDS X4. PT C/O ABD PAIN 5/10, NAUSEA, AND VOMITING. ADMINISTERED NORCO AND ZOFRAN PER JUN. PT HAD EMESIS EPISODE X1 AFTER ADMINISTRATION OF MEDS. PT VOIDS FREELY. PT IS AMBULATORY. PT SKIN WARM, DRY, AND INTACT. PT HAS 3 ABD INCISIONS THAT ARE HEALED FROM PAST CHOLECYSTECTOMY, AV SPECIALIST AND NO DRAINAGE NOTED. PT LH IV 22G D/C, CATH INTACT DUE TO PAIN UPON FLUSHING. NEW IV INSERTED IN RH 22G. NEW IV HAD BLOOD RETURN AND FLUSHES WELL. CALL LIGHT WITHIN REACH. BED IN LOWEST POSITION. SIDE RAILS X2 UP. WILL CONTINUE TO MONITOR.
[2019-02-24 02:22] VITALS: BP 112/60
--- NOTE | 2019-02-24 02:30 | NUR ---
PT LH 22G IV WAS NOT PATENT AND NOT FLUSHING WELL. IV D/C WITH CATH INTACT. NEW IV INSERTION RH 22G. BLOOD RETURN GOOD AND FLUSHES WELL. IVF INFUSING AT THIS TIME. WILL CONTINUE TO MONITOR.
--- NOTE | 2019-02-24 05:16 | NUR ---
PT SLEPT INTERMITTENTLY THROUGHOUT THE NIGHT. PT ONLY WOKE UP TO USE RESTROOM 1X. PT COMPLIED WITH NURSING CARE THROUGHOUT THE SHIFT. COMFORT AND SAFETY MEASURES MAINTAINED DURING THE SHIFT. ALL NEEDS AND CONCERNS ADDRESSED. WILL CONTINUE TO MONITOR. WILL ENDORSE CARE TO DAY SHIFT NURSE.
[2019-02-24 05:29] VITALS: BP 101/57
[2019-02-24 06:46] LABS: BASOPHIL % 0.1 % (0-2); PLATELET COUNT 228 x10^3mcL (130-400)
--- NOTE | 2019-02-24 07:05 | NUR ---
RECIEVED PT IN BED WITH NO C/O PAIN OR DISTRESS. TEKE#35 CONNECTED TO PT, DENIES ANY CP OR PRESSURE. X3 ABD SUGICAL INCISIONS, GILDA. NO REDNESS NOTED. S/P CHOLECYSECTOMY 1 MONTH AGO. NS RUNNING AT 100ML/HR IN RH, NO REDNESS OR INFLAMMATION NOTED. SAFETY PRECAUTIONS IN PLACE, CALL LIGHT WITHIN REACH, WILL MONITOR.
[2019-02-24 07:14] LABS: CALCIUM 7.4 mg/dL (8.5-10.1); CARBON DIOXIDE 25.2 mmol/L (21-32); CHLORIDE SERUM 103 mmol/L (98-107); CREATININE SERUM 0.6 mg/dL (0.6-1.0); GFR1 > 60 mL/min; GLUCOSE SERUM 210 mg/dL (74-106); POTASSIUM SERUM 3.5 mmol/L (3.5-5.1); SODIUM SERUM 137 mmol/L (136-145)
[2019-02-24 08:43] VITALS: BP 99/57
--- NOTE | 2019-02-24 11:05 | NUR ---
MORPHINE GIVEN PER EMAR FOR C/O NORRIS AND ABD PAIN OF 7/10, WILL REASSESS.
--- NOTE | 2019-02-24 12:32 | NUR ---
TYLENOL GIVEN AND COOLING MEASURES IMPLEMENTED FOR TEMP OF 101.8, WILL REASSESS.
[2019-02-24 12:40] VITALS: BP 122/75
--- NOTE | 2019-02-24 13:45 | NUR ---
PT TEMP NOW AT 98.9, DR LOVING AWARE AND AT BEDSIDE DISCUSSING TREATMENT AND POC WITH PT, PT VERBALIZES UNDERSTANDING. GI CONSULT PENDING.
[2019-02-24 16:45] VITALS: BP 125/76; BP 99/66
--- NOTE | 2019-02-24 17:54 | NUR ---
PT STABLE WITH NO C/O PIAN OF DISTRESS AT THIS TIME. A/O X4 WITH NO NORRIS OR DIZZINESS. TELE#35 CONNECTED TO PT, DENIES CP OR PRESSURE. X3 SURGICAL INCISIONS ON ABD CDI, GILDA. NS RUNNING AT 100ML/HR IN RH. IV INTACT AND PATENT WITH NO REDNESS OR INFLAMMATION. GI CONSULT PENDING. SAFETY PRECAUTIONS IN PLACE, CALL LIGHT WITHIN REACH, WILL ENDORSE TO NIGHT NURSE.
--- NOTE | 2019-02-24 19:25 | NUR ---
RECIEVED THE PATIENT IN BED WITH NO ACUTE DISTRESS NOTED, ASSESMENT PERFORMED AT THIS TIME, PT DENIES PAIN OR SOB, PT IS A/OX4 NO COMPLAINTS OF NORRIS OR DIZZINESS AT THIS TIME, TELE 35 NSR, IV RH 22G INFUSING NS AT 100ML/HOUR, ALL NEEDS ATTENDED TO SAFETY PRECAUTIONS IN PLACE, WILL CONTINUE TO MONITOR
[2019-02-24 21:43] VITALS: BP 116/72
--- NOTE | 2019-02-24 22:25 | NUR ---
PT RESTING IN BED WITH NO ABD PAIN AT THIS TIME, NO RESPIRATORY DISTRESS NOTED, ALL NEEDS ATTENDED TO SAFETY PRECAUTIONS IN PLACE WILL CONTINUE TO MONITOR
--- NOTE | 2019-02-25 00:20 | NUR ---
PT RESTING IN BED WITH NO ACUTE DISTRESS NOTED AT THIS TIME, PT DENIES ABD PAIN OR SOB, AT THIS TIME. SAFETY PRECAUTIONS IN PLACE WILL MONITOR
[2019-02-25 05:38] VITALS: BP 113/78
--- NOTE | 2019-02-25 06:13 | NUR ---
PT RESTED THROUGH NIGHT WITH NO ACUTE DISTRESS NOTED, PT HAD ONE EPISODE OF NAUSEA TREATED WITH ZOFRAN PRN PER ORDER, PT HAD ONE COMPLAINT OF NORRIS THAT WAS TREATED WITH PRN TYLENOL TO EFFECT, ALL NEEDS ATTENDED TO, SAFETY PRECAUTIONS IN PLACE, WILL CONTINUE TO MONITOR AND ENDORSE CARE TO ONCOMING SHIFT
[2019-02-25 07:04] LABS: BASOPHIL % 0.5 % (0-2); PLATELET COUNT 208 x10^3mcL (130-400)
--- NOTE | 2019-02-25 07:05 | NUR ---
RECIEVED PT IN BED WITH NO C/O PAIN OR DISTRESS. TEKE#35 CONNECTED TO PT, DENIES ANY CP OR PRESSURE. X3 ABD SUGICAL INCISIONS, MANAGER POWER. NO REDNESS NOTED. S/P CHOLECYSECTOMY 1 MONTH AGO. NS RUNNING AT 100ML/HR IN RH, NO REDNESS OR INFLAMMATION NOTED. SAFETY PRECAUTIONS IN PLACE, CALL LIGHT WITHIN REACH, WILL MONITOR. NPO AT THIS TIME UNTIL GI CONSULT BY DR MOURA TODAY.
[2019-02-25 07:19] LABS: CALCIUM 7.5 mg/dL (8.5-10.1); CARBON DIOXIDE 27.2 mmol/L (21-32); CHLORIDE SERUM 101 mmol/L (98-107); CREATININE SERUM 0.6 mg/dL (0.6-1.0); GFR1 > 60 mL/min; GLUCOSE SERUM 171 mg/dL (74-106); SODIUM SERUM 138 mmol/L (136-145)
[2019-02-25 08:35] VITALS: BP 110/75
[2019-02-25 08:35] LABS: ALBUMIN 2.7 g/dL (3.4-5.0); BILIRUBIN DIRECT 0.26 mg/dL (0.0-0.2); BILIRUBIN TOTAL 1.3 mg/dL (0.20-1.00); TOTAL PROTEIN, SERUM 6.6 g/dL (6.4-8.2)
--- NOTE | 2019-02-25 08:49 | NUR ---
DR SORIANO MADE AWARE OF PT POTASSIUM LEVEL AT 3.0, WILL FOLLOW THROUGH WITH ANY NEW ORDERS.
--- NOTE | 2019-02-25 11:15 | NUR ---
PT TAKEN DOWN FOR ERCP PROCEDURE PER DR MOURA. ALL CONSENTS SIGNED AND PREOP PREPERATIONS DONE.
--- NOTE | 2019-02-25 11:59 | NUR ---
NO COVERAGE GIVEN PER NURSING JUDGEMENT, FOR BS OF 164 D/T HYPOGLYCEMIA OF 26 EARLIER. WILL CONTINUE TO MONITOR.
[2019-02-25 12:30] VITALS: BP 129/86
--- NOTE | 2019-02-25 12:30 | NUR ---
PT BACK FROM GI LAB. VS: BP 129/86, HR 74, RR 18, TEMP 97.4, SAT 100 RA. PT STABLE AND NO CONCERNS AT THIS TIME. WILL MONITOR.
[2019-02-25] MEDS ORDERED: LEVAQUIN500 M1 PO (16:28)
[2019-02-25] MEDS ORDERED: METFORMIN500 M1 PO (16:28)
[2019-02-25 17:16] VITALS: BP 104/63
[2019-02-25 17:22] VITALS: BP 103/68
[2019-02-25 18:09] VITALS: BP 103/68
--- NOTE | 2019-02-25 18:31 | NUR ---
PT STABLE TO DISCHARGE PER MD ORDER. ALL CARES TOLERATED WELL. VS WNL. NO DISTRESS NOTED. ALL DISCHARGE INSTRUCTIONS, EDUCATION, AND PRESCRIPTIONS GIVEN TO PT AND PT VERBALIZES UNDERSTANDING. IV REMOPVED WITH CATHETER INTACT. NO REDNESS NOTED TO SITE. ID BANDS REMOVED. PT ESCORTED DOWN TO LOBBY VIA WC WITH SLIP LASTER AND FAMILY MEMBER. ALL PERSONAL BELONGINGS IN HAND.
== END 2019-02-25 18:47 | disposition home or self-care (01) | DRG 721 ==
LOC: ED 19:29 → MU 23:57 → DU 23:57 → MU 02-24 01:03 → DU 02-24 01:07
PROVIDERS: Emergency Medicine; Internal Medicine Gastroenterology; ADMIT Internal Medicine
PROC: 0FPB8DZ Removal of Intraluminal Device from Hepatobiliary Duct, Via Natural or Artificial Opening Endoscopic (ICD-10-PCS; principal; 2019-02-25 11:00)
PROC: 0F798ZZ Dilation of Common Bile Duct, Via Natural or Artificial Opening Endoscopic (ICD-10-PCS; 2019-02-25 11:00)
PROC: BF131ZZ Fluoroscopy of Gallbladder and Bile Ducts using Low Osmolar Contrast (ICD-10-PCS; 2019-02-25 11:00)
DX: T85.79XA Infection and inflammatory reaction due to other internal prosthetic devices, implants and grafts, initial encounter (principal); A41.9 Sepsis, unspecified organism; E87.2 Acidosis; K76.0 Fatty (change of) liver, not elsewhere classified; E87.1 Hypo-osmolality and hyponatremia; E66.01 Morbid (severe) obesity due to excess calories; T85.848A Pain due to other internal prosthetic devices, implants and grafts, initial encounter; E87.6 Hypokalemia; E11.9 Type 2 diabetes mellitus without complications; K66.0 Peritoneal adhesions (postprocedural) (postinfection); K42.9 Umbilical hernia without obstruction or gangrene; E66.9 Obesity, unspecified; Z79.84 Long term (current) use of oral hypoglycemic drugs; Z90.49 Acquired absence of other specified parts of digestive tract; Y83.1 Surgical operation with implant of artificial internal device as the cause of abnormal reaction of the patient, or of later complication, without mention of misadventure at the time of the procedure; Y92.009 Unspecified place in unspecified non-institutional (private) residence as the place of occurrence of the external cause
CPT/HCPCS: 43262; 82962; C1769; G0378; J1610; J1815; J1885; J1956; J2250; J2270; J2405; J2704; J3480; J3490; J7030; Q0092; Q9967